=== PATIENT | male | born 1950 | race Caucasian/White ===

== ENCOUNTER 2020-10-23 13:44 | Outpatient (RCR) | payer MEDICARE, SELFPAY ==
--- NOTE | 2020-10-23 15:39 | PTOPEVAL ---
Thank you for referring Bolivar Hall to [facility].? The patient is scheduled to be seen for therapy? 1 x/week for 4 weeks. Please review, sign, date and return this plan of care JACI. I agree with and certify that the following plan of care is medically necessary. Referring Physician Date Attending Provider: Vaughn Osorio MD Diagnosis left shoulder pain, right shoulder pain. Onset chronic Additional Evaluation Detail he received injections 10/10/20 Subjective Information He reports he has chronic Query Text:As Reported By Patient/ shoulder pain that increased Family with resistance lifting overhead. He did have increased pain when riding the zero-turn lawnmower for hours. Denies any pain in the shoulders since his injections. He rides a regular bike, yard work and walking for normal activities. Denies any problems with these task. Pain Assessment Self Report Pain Assessment Left Shoulder(s) Reported Pain Level 0 Lowest Pain Intensity 0 Greatest Pain Intensity 0 Right Shoulder(s) Reported Pain Level 1 Pain Frequency Chronic Lowest Pain Intensity 0 Greatest Pain Intensity 2 Upper Extremity Range of Motion Scapular/ Shoulder Range of Motion Right Shoulder Flexion - Active 142 Shoulder Extension - Active 50 Shoulder Abduction - Active 124 Shoulder Medial Rotation - Active 75 Shoulder Medial Rotation - Active T11 Query Text:Reach Behind the Back Shoulder Lateral Rotation - Active 50 Shoulder Lateral Rotation - Active T1 Query Text:Reach Behind the Head Left Shoulder Flexion - Active 145 Shoulder Extension - Active 45 Shoulder Abduction - Active 148 Shoulder Medial Rotation - Active 86 Shoulder Medial Rotation - Active T10 Query Text:Reach Behind the Back Shoulder Lateral Rotation - Active 55 Shoulder Lateral Rotation - Active C6 Query Text:Reach Behind the Head Upper Extremity Muscle Strength Testing Scapular/Shoulder Right Scapular Retraction - Middle Trapezius 3- Fair - Shoulder Flexion Strength 4 Good Shoulder Extension Strength 5 Normal Shoulder Abduction Strength 4 Good Shoulder Medial Rotation Strength 5 Normal Shoulder Lateral Rotation Strength 4 Good Shoulder Strength Comments slight pain with resistance Left Scapular Retraction - Middle Trapezius 3- Fair - Shoulder Flexion Strength 4+ Good + Shoulder Extension Strength 5 Normal Shoulder Abduction Strength 4+ Good +
--- NOTE | 2020-10-29 11:37 | PCPTNOTE ---
Patient called & cancelled al his scheduled appointment due to does not feel therapy is necessary. Will plan to DC therapy services.
--- NOTE | 2020-11-19 08:26 | PCPTNOTE ---
Admitting Provider: Attending Provider: Vaughn Osorio MD Patient:Bolivar Hall Date of :1950 Discharge Note Patient has not returned for any further treatments since 10/23/2020, therefore he)will be discharged at this time. Patient?s initial visit was on 10/23/2020 14:00 and he had a total of 1 visits. The therapy goals have been not met due to he was seen for 1 visit only. Thank you for referring this patient to [facility]. Please review, sign, date and return this discharge summary JACI. I have been updated about the patient's current status and I agree with discharge from the above service at this time. Referring Physician Date
== END 2021-01-06 11:14 | disposition hospice, home (50) ==
LOC: ANHPT 13:44
PROVIDERS: PCP Family Medicine; Visit Provider Orthopaedic Surgery
DX: M25.511 Pain in right shoulder (principal); M25.512 Pain in left shoulder
CPT/HCPCS: 97110; 97161

== ENCOUNTER 2021-03-27 00:39 | Day surgery (SDC) | payer MEDICARE, SELFPAY ==
[2021-03-13 08:29] VITALS: BMI 30.6
--- NOTE | 2021-03-26 15:22 | PM.HPGS ---
History of Present Illness History of Present Illness Consent: Risks, benefits, and alternatives have been discussed and questions answered. Patient agrees to proceed with procedure. Chief complaint: hx of colon polyps Narrative: Bolivar Hall is a 71 year old male referred for colon cancer screening. He has a history of polyps Review of Systems Review of Systems: All systems reviewed & are unremarkable except as noted in HPI and below PMFSH Past Medical History Medical History Abnormal fasting glucose Actinic keratosis Anisocoria BMI 31.0-31.9,adult BMI 32.0-32.9,adult Chronic low back pain without sciatica Chronic pain of left knee Impacted cerumen of right ear Neoplasm of skin Pain in left shoulder Pain in right shoulder Seborrhea Family History Family History Father Family history of diabetes mellitus in first degree relative Diabetes mellitus Hypertension Family history of cardiovascular disease, Onset Age: 84 Family history of arthritis Mother Patient's mother is in good health Hypertension, Onset Age: 79 Cerebrovascular accident, Onset Age: 79 Family history of arthritis, Onset Age: 79 Family history of kidney disease, Onset Age: 79 Social History Social History Smoking status: Never smoker Alcohol intake: current Drinks per week: 5 Substance use: never Substance use type: does not use Living arrangements: with family Gender identity (if verbalized by the patient): Male Spiritual care concerns: No Meds Home Medications and Allergies Home Medications Medication Instructions Recorded Confirmed Type meloxicam 15 mg tablet 15 mg PO DAILY PRN #90 tablet 01/09/20 03/13/21 Rx atorvastatin 10 mg tablet 10 mg PO DAILY #30 tablet 04/08/20 03/13/21 Rx lisinopril 20 mg tablet 20 mg PO DAILY #90 tablet 10/08/20 03/13/21 Rx allopurinol 100 mg PO DAILY 03/13/21 03/13/21 History Allergies Allergy/AdvReac Type Severity Reaction Status Date / Time codeine Allergy Intermediate Hives Verified 03/13/21 08:31 MEPERIDINE HCL Allergy Severe Hives Uncoded 03/13/21 08:31 Exam Resp: Auscultation: clear to auscultation bilaterally Cardio: Rate: regular rate Rhythm: regular rhythm GI: GI Palp: Yes Soft to palpation and No Tenderness to palpation present (GI) Assessment and Plan Assessment and plan (1) Colon cancer screening: Code(s): Z12.11 - Encounter for screening for malignant neoplasm of colon Status: Acute Assessment and Plan: Colonoscopy with possible biopsy or polypectomy or cautery or injection of substances.
[2021-03-27 08:49] VITALS: BP 142/53; PULSE 92; RESP 18; TEMP 36.6; O2SAT 98; BMI 29.0
[2021-03-27] MEDS: LACTATED RINGERS 1,000 ML 150 ML IV CONT (09:13)
--- NOTE | 2021-03-27 09:20 | WPDANESEPPF ---
Anes - Initial Pre Proc Eval Procedure: Operation Date: 03/27/21 09:30 Proposed Procedures p Screening Colonoscopy - Bill Forrest MD Date/Time: 03/27/21 09:20 Surgeon: Bill Forrest MD Pre Op Diagnosis: hx of colon polyps Patient Data Age: 71 Gender: M Height: 1.7 m Weight: 84.2 kg Last Vital Signs Temp 36.6 C 03/27/21 08:49 Pulse 92 03/27/21 08:49 Resp 18 03/27/21 08:49 BP 142/53 H 03/27/21 08:49 Pulse Ox 98 03/27/21 08:49 Allergies Allergy/AdvReac Type Severity Reaction Status Date / Time codeine Allergy Intermediate Hives Verified 03/13/21 08:31 MEPERIDINE HCL Allergy Severe Hives Uncoded 03/13/21 08:31 Home Medications Medication Instructions Recorded Confirmed Type meloxicam 15 mg tablet 15 mg PO DAILY PRN #90 tablet 01/09/20 03/13/21 Rx atorvastatin 10 mg tablet 10 mg PO DAILY #30 tablet 04/08/20 03/13/21 Rx lisinopril 20 mg tablet 20 mg PO DAILY #90 tablet 10/08/20 03/13/21 Rx allopurinol 100 mg PO DAILY 03/13/21 03/13/21 History Patient hx anesthesia problems: none Family hx anesthesia problems: none Results Review: All pre-operative results and documents have been reviewed as part of the pre-operative evaluation. [facility] Past Medical History Medical History (Updated 03/26/21 @ 15:23 by Bill Forrest MD) Abnormal fasting glucose Actinic keratosis Anisocoria BMI 31.0-31.9,adult BMI 32.0-32.9,adult Chronic low back pain without sciatica Chronic pain of left knee Impacted cerumen of right ear Neoplasm of skin Pain in left shoulder Pain in right shoulder Seborrhea Family History Family History Father Family history of diabetes mellitus in first degree relative Diabetes mellitus Hypertension Family history of cardiovascular disease, Onset Age: 84 Family history of arthritis Mother Patient's mother is in good health Hypertension, Onset Age: 79 Cerebrovascular accident, Onset Age: 79 Family history of arthritis, Onset Age: 79 Family history of kidney disease, Onset Age: 79 Social History Social History Smoking status: Never smoker Alcohol intake: current Drinks per week: 5 Substance use: never Substance use type: does not use Living arrangements: with family Gender identity (if verbalized by the patient): Male Spiritual care concerns: No Anes - Eval Final PreProcedure Day of Procedure 03/27/21 09:20 Patient weight: overweight Heart: regular rate and rhythm Lungs: clear to auscultation and normal air movement Airway: Mallampati scale class II Neurological: alert and oriented Last oral intake: >/= 8 hours ASA classification: II Emergent: no Anesthetic plan: proceed Anesthesia type and monitoring: general GIVS Results Review: All pre-operative results and documents have been reviewed as part of the pre-operative evaluation. Informed Consent: The patient's anesthetic plan and its attendant risks and benefits were discussed with the patient/family/POA. Questions were solicited and answers provided to the satisfaction of the patient/family/POA.
[2021-03-27 10:06] VITALS: BP 115/82; PULSE 99; RESP 20; O2SAT 98
[2021-03-27 10:16] VITALS: BP 105/76; PULSE 90; RESP 20; O2SAT 99
[2021-03-27 10:26] VITALS: BP 125/75; PULSE 79; RESP 17; O2SAT 100
== END 2021-03-27 10:39 | disposition home or self-care (01) ==
PROVIDERS: PCP Family Medicine; Visit Provider Internal Medicine Gastroenterology
PROC: 0DJD8ZZ Inspection of Lower Intestinal Tract, Via Natural or Artificial Opening Endoscopic (ICD-10-PCS; CPT 45378; principal; 2021-03-27 09:30)
DX: Z12.11 Encounter for screening for malignant neoplasm of colon (principal); D12.3 Benign neoplasm of transverse colon; K57.30 Diverticulosis of large intestine without perforation or abscess without bleeding; L57.0 Actinic keratosis; H57.02 Anisocoria
CPT/HCPCS: 45385; 88305; J2001; J2704; J7120

== ENCOUNTER 2024-12-08 10:14 | Emergency (ER) | payer MEDICARE, SELFPAY ==
--- NOTE | ~2024-12-08 | XR_ITS ---
EXAMINATION: XR ankle RT min 3V, XR foot RT min 3V DATE: 12/08/2024 11:28 INDICATION: Right toe and ankle swelling TECHNIQUE: 1. Anteroposterior, mortise, additional oblique and lateral view of the right ankle were obtained. 2. Dorsoplantar, two oblique and lateral views of the right foot were obtained. COMPARISON: None. FINDINGS: Mild hallux valgus. Alignment of the foot and ankle is otherwise normal. No fracture. There is flatte haydee of the articular cortex of the head of the second metatarsal without underlying subarticular chuckie ear lucency or sclerosis consistent with sequela of chronic osteonecrosis (Freiberg's infraction). Po lyarticular osteoarthritis moderate at the first interphalangeal joint and mild at many of the tarsal metatarsal, metatarsophalangeal and remaining interphalangeal joints. Moderate-sized Achilles calcan eal spur with a few small enthesopathic ossicles at the distal Achilles tendon. Additional small enth esophytes at the anterior margin of the medial malleolus. No erosions to suggest inflammatory arthrit is. No ankle joint effusion. The soft tissues are unremarkable. IMPRESSION: 1. No acute osseous abnormality at the right foot or ankle. 2. Chronic osteonecrosis (Freiberg's infraction) with mild flattening of the articular surface of the head of the second metatarsal. 3. Mild polyarticular osteoarthritis in the mid and forefoot. Reviewed, dictated and finalized at location A. IMPRESSION: 1. No acute osseous abnormality at the right foot or ankle. 2. Chronic osteonecrosis (Freiberg's infraction) with mild flattening of the ar ticular surface of the head of the second metatarsal. 3. Mild polyarticular osteoarthritis in the mid and forefoot.
--- OUTSIDE RECORDS SUMMARY | 2024-12-08 10:19 | XMS_ITS | Clinical Summary ---
Author Organization [facility] Address [address] [place] [address] Care Team Providers Care Blast Furnace Checker Name Role Phone Unavailable Primary Care Provider Unavailabl e Social History Tobacco Use Types Packs/Day Years Used Date Smoking Tobacco: Never Assessed Sex and Gender Information Value Date Recorded Sex Assigned at Not on file Legal Sex Male 4:22 PM CDT Gender Identity Not on file Sexual Orientation Not on file Last Filed Vital Signs Vital Sign Reading Time Taken Comments Blood Pressure 140/94 06/02/2012 3:32 PM PASTRYCOOK Pulse 91 06/02/2012 3:32 PM PASTRYCOOK Temperature - - Respiratory Rate - - Oxygen Saturation - - Inhaled Oxygen Concentration - - Weight 94.3 kg (208 lb) 06/02/2012 3:32 PM PASTRYCOOK Height 167.6 cm (5' 6) 06/02/2012 3:32 PM PASTRYCOOK Body Mass Index 33.57 06/02/2012 3:32 PM PASTRYCOOK Plan of Treatment Health Maintenance Due Date Last Done Comments Colorectal Cancer Screening Colonoscopy (10 Years) 1950 Hepatitis C 1969 DTaP, Tdap and Td Vaccines ( 1 - Tdap) 1970 Pneumococcal Vaccine: 50+ Ye ars (1 of 1 - PCV) 2001 Zoster Vaccines (1 of 2) 2001 COVID-19 Vaccine ( - 2023-2 5 season) 2024 RSV Immunization or 60+ Years (1 - 1-dose 75+ series) 2026 Meningococcal B Vaccine Aged Out No l onger eligible based on patient's age to complete this topic Meningococcal Vaccine Aged Out No kelsie berenice eligible based on patient's age to complete this topic RSV Immunizations Under 20 Months Aged Out No longer eligible based on patient's age to complete this topic
[2024-12-08 10:22] VITALS: BP 152/78; PULSE 85; RESP 18; TEMP 36.4; O2SAT 97
--- NOTE | 2024-12-08 10:58 | ED_ITS ---
HPI - Extremity Problem General Chief complaint: Extremity Problem,Nontraumatic Stated complaint: R big toe pain Time Seen by Provider: 12/08/24 10:36 History of Present Illness HPI Narrative: Patient is a 74-year-old male who presents to the ER with right big toe pain and swelling that radiates to his right ankle. He reports his pain started approximately 1 week ago. Patient endorses a history of gout and reports his physician prescribed him allopurinol, which patient takes when he has an attack. He endorses a history of high blood pressure and hyper lipidemia, both of which he is medicated. Patient denies any calf pain, injury to the site, or recent fevers. Related Data Home Medications ?Medication ?Instructions ?Recorded ?Confirmed ?Last Taken ?Type cyanocobalamin (vitamin B-12) 500 1,000 mcg PO DAILY 11/10/24 Unknown History mcg tablet Allergies Allergy/AdvReac Type Severity Reaction Status Date / Time codeine Allergy Intermediate Hives Verified 12/08/24 10:30 MEPERIDINE HCL Allergy Severe Hives Uncoded 12/08/24 10:30 Review of Systems Review of Systems: All systems reviewed & are unremarkable except as noted in HPI and below PMFSH Past Medical History Medical History Acute non-recurrent maxillary sinusitis BMI 28.0-28.9,adult Overweight (BMI 25.0-29.9) Nail fungal infection (~2023) great toe 20-30% Abnormal PSA (02/04/23) PSA 5.2 on 02/04/2023. PSA 5.4 with free PSA 11.9% on 08/06/2023. PSA 6.2 with 9.8% free PSA on 03/06/2024. PSA 7.3 with 10% free PSA on 11/07/2024. Chronic low back pain with right-sided sciatica At low risk for fall Encounter for prostate cancer screening PSA 3.88 on 01/15/2022. PSA elevated at 5.2 on 02/04/2023. BMI 30.0-30.9,adult Obesity (BMI 30.0-34.9) Acute bronchitis Diverticulosis (~03/27/21) multiple diverticuli on colonoscopy 03/27/2021 Colon cancer screening Impacted cerumen of right ear BMI 31.0-31.9,adult Actinic keratosis Anisocoria Pain in right shoulder Pain in left shoulder Neoplasm of skin BMI 32.0-32.9,adult Chronic low back pain without sciatica Seborrhea Chronic pain of left knee Abnormal fasting glucose glucose 106 with hemoglobin A1c 6.0 on 07/09/2021. Fasting glucose 96 on 01/15/2022. Glucose 99 with hemoglobin A1c 6.4 on 07/22/2022. Glucose 103 with hemoglobin A1c 6.0 with urine microalbumin ratio of 9 on 02/04/2023. Fasting glucose 100 with hemoglobin A1c 5.8 on 08/06/2023. Glucose 112 with hemoglobin A1c 6.2 and GFR 60 with microalbumin negative on 03/06/2024. Glucose 114 with hemoglobin A1c 6.1 and GFR 59 on 11/07/2024. Family History Family History Father Family history of diabetes mellitus in first degree relative Diabetes mellitus Hypertension Family history of cardiovascular disease, Onset Age: 84 Family history of arthritis Mother Patient's mother is in good health Hypertension, Onset Age: 79 Cerebrovascular accident, Onset Age: 79 Family history of arthritis, Onset Age: 79 Family history of kidney disease, Onset Age: 79 Social History Social History Smoking status: Never smoker Alcohol intake: current Drinks per week: 5 Substance use: never Substance use type: does not use Current Housing: Decline to Answer Concerned About Future Housing: Decline to Answer Difficulty Paying Gas/Electric Bills: Decline to Answer Difficulty Paying for Meds: Decline to Answer Currently Unemployed: Decline to Answer Education: Decline to Answer Difficulty w/ Childcare or Family Care: Decline to Answer Living arrangements: with family Gender identity (if verbalized by the patient): Male Spiritual care concerns: No Exam Narrative: GENERAL: Well appearing, well-nourished, non-toxic, in no acute distress. HEAD: Normocephalic, atraumatic. NECK: Supple. No adenopathy, no masses. RESPIRATORY: Airway patent, respirations nonlabored. Clear to auscultation bilaterally, no rales, rhonchi, wheezing. CARDIOVASCULAR: Regular rate and rhythm without murmurs, rubs, or gallops. Peripheral pulses 2+ and equal bilaterally. ABDOMINAL: Soft, nontender, nondistended, no hepatosplenomegaly. Normoactive BS. MUSCULOSKELETAL: Moves all extremities. Strength/ROM intact without gross deformities. SKIN: Warm, dry, normal color. No rashes. Redness and swelling to joint at base of right great toe NEURO: A&O X3. Speech clear. Cranial nerves II-XII intact. No ataxic movements. PSYCHIATRIC: Appropriate mood and affect. Normal interaction. Course Vital Signs Vital signs: Vital Signs Temperature 36.4 C 12/08/24 10:22 Pulse Rate 85 12/08/24 10:22 Respiratory Rate 18 12/08/24 10:22 Blood Pressure 152/78 H 12/08/24 10:22 Pulse Oximetry 97 12/08/24 10:22 Temperature 36.4 C 12/08/24 10:22 Pulse Rate 70 12/08/24 11:22 Respiratory Rate 20 12/08/24 11:22 Blood Pressure 145/76 H 12/08/24 11:22 Pulse Oximetry 98 12/08/24 11:22 MDM - Extremity (Nontraumatic) MDM Narrative Medical decision making narrative: Patient is a 74-year-old male who presents to the ER with right big toe pain and swelling that radiates to his right ankle. He reports his pain started approximately 1 week ago. Patient endorses a history of gout and reports his physician prescribed him allopurinol, which patient takes when he has an attack. He endorses a history of high blood pressure and hyper lipidemia, both of which he is medicated. Patient denies any calf pain, injury to the site, or recent fevers. Labs Ordered: None necessary Imaging Ordered: Right foot x-ray, right ankle x-ray Medications Ordered: Toradol 30 mg IM, prednisone 40 mg p.o. Results: Patient's right foot and ankle x-rays indicates 1. No acute osseous abnormality at the right foot or ankle. 2. Chronic osteonecrosis (Freiberg's infraction) with mild flattening of the articular surface of the head of the second metatarsal. 3. Mild polyarticular osteoarthritis in the mid and forefoot. Diagnosis: Gout attack Consults: podiatry Patient Education/Shared MDM: Patient reports he has only been using his allopurinol prescription as needed. He was advised to start taking it on a daily basis unless told differently by his PCP. Pt was advised to use Aleve or Ibuprofen when he starts to feel a flare-up come on. Results of imaging shared with patient. He endorses improvement of symptoms following medication administration. Patient strongly advised to follow-up with his PCP and Podiatry as soon as possible. He will be discharged home with a prescription for allopurinol and prednisone. Strict return precautions provided. Patient verbalized understanding and is in agreement with plan. Vital signs stable at time of discharge. All questions answered. Differential Diagnosis Differential diagnosis: Likely gout and other (Right toe fracture, osteomyelit is) Discharge Plan Discharge Clinical Impression: Gout attack, Acute pain of right foot Patient Disposition: Home Condition: Stable Instructions: Antibiotic Form, Low Purine Diet (ED), Gout (ED) Additional Instructions: Please return to the ER with any worsening symptoms. Follow-up with primary care provider as soon as possible. He should also follow up with the senior product consultant. Take all medications as prescribed, including regularly scheduled medications. Start taking your allopurinol on a daily basis. You may take Aleve and Tylenol as needed for pain control. Patient Language: Sami Prescriptions: New methylprednisolone [Medrol (Rylan)] 4 mg tablets,dose pack See Rx Instructions .ROUTE .COMPLEX Qty: 21 0RF Rx Instructions: for 6 days allopurinol 100 mg tablet 100 mg PO DAILY Qty: 30 0RF No Action fluorouracil [Efudex] 5 % cream 1 applic topical BID 14 Days Qty: 40 1RF Rx Instructions: apply sufficient amount to cover all lesions twice daily for 2 weeks on and then 2 weeks off until clear atorvastatin 10 mg tablet 10 mg PO DAILY Qty: 30 11RF lisinopril 20 mg tablet 20 mg PO DAILY Qty: 90 3RF cyanocobalamin (vitamin B-12) 500 mcg tablet 1,000 mcg PO DAILY Follow-up/Referrals: Sunny Cervantes DPM [Physician] - (podiatry) Pascual Arshad MD [Primary Care Provider] - Time of Disposition: 13:06
--- OUTSIDE RECORDS SUMMARY | 2024-12-08 11:12 | XMS_ITS | Continuity of Care Document ---
Author Organization [facility] Address [address] [place] [address] [address] [place] [address] Phone Care Team Providers Care Screening Representative Name Role Phone Tobi, Eddeon Unavailable Unavailable Procedures Procedure Date Eye Exam Established Pt Advance Directives Directive Yes / No Effective Date File Name No Information Encounters Encounter Description Practice Location Reason(s) For Visit Diagnoses Date Provider Providers Copied on Encounter [facility], [id number] [place] [address] [address], [place], [place], [id number], [place] tel:[phone] SEC [facility] No Information [address]. [address] [facility] , [address], [place], [address], [place]. tel:[phone] Referring Provider: Jeffrey Olivia MD, [address] [place], [address]. tel:[phone] Family History Family Member Type Diagnosis Age At Onset No Information Payers Payer name Insurance type Covered libertarian ID Authoriza tion(s) No Information Social History Type Description Quantity Date Captured Comments Sex Male Smoking Status No Information Chief Complaint And Reason For Visit No Information Reason For Referral Reason For Referral No Information History Of Present Illness Encounter Date Complaint History Of Prese nt Illness No Information Functional Status Date Functional Assessmen t No Information Instructions Date Instruction Additional Infor mation No Information Assessments Type Assessment Date No Information Patient Care Teams Name Effective Dates (start - stop) Status Members No Information
--- OUTSIDE RECORDS SUMMARY | 2024-12-08 11:12 | XMS_ITS | Clinical Summary ---
Author Organization [facility] Address [address] [place] [address] Care Team Providers Care Sausage Smoker Name Role Phone Unavailable Primary Care Provider [...] Comments Blood Pressure 140/94 06/02/2012 3:32 PM NEEDLE MOLDER Pulse 91 06/02/2012 3:32 PM NEEDLE MOLDER Temperature - - Respiratory Rate - - Oxygen Saturation - - Inhaled Oxygen Concentration - - Weight 94.3 kg (208 lb) 06/02/2012 3:32 PM NEEDLE MOLDER Height 167.6 cm (5' 6) 06/02/2012 3:32 PM NEEDLE MOLDER Body Mass Index 33.57 06/02/2012 3:32 PM NEEDLE MOLDER Plan of Treatment Health Maintenance Due Date [...]
[2024-12-08 11:21] VITALS: O2SAT 96
[2024-12-08] MEDS: KETOROLAC 30 MG/ML VIAL (*BKC) IM (11:21)
[2024-12-08 11:22] VITALS: BP 145/76; PULSE 70; RESP 20; O2SAT 98
== END 2024-12-08 13:20 | disposition home or self-care (01) ==
PROVIDERS: Emergency Provider Registered Nurse; PCP Family Medicine
DX: M10.9 Gout, unspecified (principal); I10 Essential (primary) hypertension; E78.5 Hyperlipidemia, unspecified; Z85.828 Personal history of other malignant neoplasm of skin; Z79.899 Other long term (current) drug therapy; M19.071 Primary osteoarthritis, right ankle and foot; M92.71 Juvenile osteochondrosis of metatarsus, right foot
CPT/HCPCS: 73610; 73630; 96372; 99283; J1885; J7512